=== PATIENT | female | born 1980 | race Caucasian/White ===

== ENCOUNTER 2018-09-04 01:07 | Emergency (ER) | payer MEDICAID ==
[~2018-09-04] VITALS: Ht 162.6 cm; Wt 75.2 kg
[2018-09-04 01:10] VITALS: BP 139/64; PULSE 81; RESP 19; Ht 162.6 cm; Wt 75.2 kg
[2018-09-04] MEDS ORDERED: KETOROLAC 30 MG INJ IM STA (01:32)
--- NOTE | 2018-09-04 01:32 | ERD ---
ER Documentation Chief Complaint Chief Complaint LEFT ANKLE-FOOT INJ; FELL 3 STEPS OF STAIRS @ 2130 HPI This is a 38-year-old female who presents here in the emergency department with complaints of bilateral ankle pain. Stated that her left ankle is much more painful than the right ankle. Stated this started after falling on his three- steps of stairs at around 9:30 PM today. Stated she initially landed on her left ankle then on her right ankle. LMP: 3 days ago. G3, . Denies headache, head injury, loss of consciousness, dizziness, neck pain, neck stiffness, throat pain, difficulty swallowing, difficulty breathing lying flat, shoulder pain, chest pain, back pain, abdominal pain, nausea, vomiting, constipation, diarrhea, urinary symptoms, or possibility being , loss of bowel and bladder control, numbness or tingling sensation, calf pain, recent travel, recent major surgery in the last 3 weeks, calf pain, recent long travel, recent exposure to any illness, recent antibiotic use in the last 3 months, fever, chills, seizures. Past medical history: Surgical history: x3. Social: Denies smoking, use of alcoholic beverages, use of illegal drugs. ROS All systems reviewed and are negative except as per history of present illness. Medications Home Meds Active Scripts Ibuprofen* (Motrin*) 800 Mg Tab, 800 MG PO Q6H PRN for PAIN AND OR ELEVATED TEMP, #30 TAB Prov:CAIN VEGA 09/04/18 Allergies Allergies: Coded Allergies: Penicillins (Verified Allergy, Severe, RASH, 10/02/12) PMhx/Soc History of Surgery: Yes () Anesthesia Reaction: No Hx Neurological Disorder: No Hx Respiratory Disorders: No Hx Cardiac Disorders: No Hx Psychiatric Problems: No Hx Miscellaneous Medical Probl: No Hx Alcohol Use: No Hx Substance Use: No Hx Tobacco Use: No Smoking Status: Never smoker Physical Exam Vitals Vital Signs Date Temp Pulse Resp B/P (MAP) Pulse Ox O2 O2 Flow FiO2 Time Delivery Rate 09/04/18 98.0 02:47 09/04/18 99.1 81 19 139/64 98 01:10 (89) Physical Exam Const: No acute distress Head: Atraumatic Eyes: Normal Conjunctiva ENT: Normal External Ears, Nose and Mouth. Neck: Full range of motion. No meningismus. Resp: Clear to auscultation bilaterally Cardio: Regular rate and rhythm, no murmurs Abd: Soft, non tender, non distended. Normal bowel sounds Skin: No petechiae or rashes Back: No midline or flank tenderness Ext: No cyanosis, or edema. Left ankle: Mild swelling and tenderness to palpation. No obvious deformity. Limited range of motion due to pain. Left foot: No obvious deformity but tenderness to palpation on dorsal area. Left pedal pulses within normal limits. No discoloration. No swelling. Left toes has good and full range of motion. Capillary refills to left lower extremity is less than 2 seconds. Left tibia and fibula: No obvious swelling. No deformity. No discoloration. No calf tenderness. Bilateral hips: Stable and unremarkable. Bilateral knees are symmetrical. Bilateral knees has no swelling/obvious deformity. Bilateral knees has good and full range of motion. Right ankle: Has tenderness to palpation with pain to range of motion. No obvious deformity. Mild swelling. Right foot: No obvious deformity. Right pedal pulses within normal limits. No swelling. Right toes has good and full range of motion. Capillary refills to right lower extremity is less than 2 seconds. No neurovascular deficits. Neur: Awake and alert. No neurological deficits. Psych: Normal Mood and Affect Results 24 hrs Laboratory Tests Test 09/04/18 01:43 POC Beta HCG, Qualitative NEGATIVE Current Medications Medications Dose Sig/Eric Start Time Status Last (Trade) Ordered Route PRN Stop Time Admin Dose Reason Admin Ketorolac 30 mg ONCE STAT 09/04/18 DC 09/04/18 Tromethamine IM 01:32 01:55 (Toradol) 09/04/18 01:34 1 tab ONCE ONCE 09/04/18 DC 09/04/18 Acetaminophen PO 02:00 01:55 / 09/04/18 02:01 Hydrocodone Bitart ([place] (5/325)) Procedures/MDM Diagnostic tests: POC urine : Negative. X-ray of the left ankle: Unremarkable left ankle exam. X-ray of the left foot: Unremarkable left foot exam. X-ray of the right ankle: Unremarkable right ankle exam. Treatment: Toradol IM. [place] p.o. Roger wrap application by EMT. Crutches and crutch training was provided by EMT. Re-evaluation: Denies leg pain, ankle pain. No neurovascular deficit prior to and after the application of Roger wrap. Stated that she feels much better at this time. Family member stated that they are comfortable going home. Differential diagnosis I have low suspicion for open fracture, displaced fracture, compartment syndrome, DVT, Lisfranc fracture, septic joint, tendon injury. Final diagnosis: Ankle sprain. Ankle contusion. Prescription: Motrin. Follow-up with PCP in the next 24-48 hours. Follow-up with post closing specialist in the next 3 to 5 days if symptoms persist. Come back here in the emergency department for any new symptoms or any worsening symptoms. All questions and concerns were answered. Patient and family members verbalized understanding and agreed with plan of care. Hemodynamically stable on discharge. Departure Diagnosis: Primary Impression: Ankle contusion Additional Impression: Foot contusion Condition: Stable Additional Instructions: Follow-up with PCP in the next 24-48 hours. Follow-up with post closing specialist in the next 3 to 5 days if symptoms persist. Come back here in the emergency department for any new symptoms or any worsening symptoms. CAIN VEGA Sep 04, 2018 01:32
[2018-09-04] MEDS ORDERED: HYDROCODONE/APAP (5/325) TAB PO ONE (02:00)
[2018-09-04] MEDS ORDERED: IBUP800T48 PO (02:28)
== END 2018-09-04 02:50 | disposition home or self-care (01) ==
LOC: FTE 01:07
DX: S93.402A Sprain of unspecified ligament of left ankle, initial encounter (principal); S90.32XA Contusion of left foot, initial encounter; W10.9XXA Fall (on) (from) unspecified stairs and steps, initial encounter; Y92.9 Unspecified place or not applicable
CPT/HCPCS: 73610; 73630; 81025; 96372; J1885; Z7502; Z7610